=== PATIENT | male | born 1995 | race African-American/Black ===

== ENCOUNTER 2018-11-21 09:47 | Emergency (ER) | payer SELFPAY ==
[~2018-11-21] VITALS: Ht 177.8 cm; Wt 59.0 kg
[~2018-11-21 09:47] MED LIST: ACET-1603; PENI500T2
[2018-11-21] MEDS ORDERED: ACETAMINOPHEN 325 MG TAB PO ONE (10:00)
[2018-11-21 10:08] VITALS: BP 142/98
[2018-11-21 10:16] LABS: Hematocrit 46.2 % (41.0-53.0); Hemoglobin 15.7 g/dL (13.5-17.5); Mean Corpuscular Hgb Conc. 33.9 g/dL (32.0-36.0); Mean Corpuscular Volume 88.4 fL (80.0-100.0); Platelet Count (auto) 102 10^3/uL (140-450); Red Blood Cells 5.22 10^6/uL (4.5-5.90); Red Cell Distribution Width 12.6 % (11.8-14.3); White Blood Cell 6.2 10^3/uL (4.4-10.8)
[2018-11-21 10:27] LABS: Basophils % (manual) 0 (0.0-2.0); Blast Cells 0; Eosinophils % (manual) 0 (0-7); Metamyelocytes % 0; Myelocytes % 0; Promyelocytes % 0; Reactive Lymphocytes 0
[2018-11-21 10:35] LABS: Albumin 4.1 g/dL (3.4-5.0); Calcium 9.1 mg/dL (8.5-10.1)
[2018-11-21 10:37] LABS: BUN/Creatinine Ratio 13.3; Bilirubin, Total 3.2 mg/dL (0.2-1.0); Total Protein 8.2 g/dL (6.4-8.2)
[2018-11-21 10:53] LABS: Band Neutrophils % (manual) 2; Lymphocytes % (manual) 20 (10.0-50.0); Monocytes % (manual) 6 (0-12)
[2018-11-21 11:12] LABS: Potassium 2.8 mmol/L (3.5-5.1)
[2018-11-21] MEDS ORDERED: POTASSIUM EFFERVESENT TAB 25 MEQ ONE (11:25)
[2018-11-21] MEDS ORDERED: POTASSIUM EFFERVESENT TAB 25 MEQ PO ONE (11:30)
== END 2018-11-21 12:07 | disposition left against medical advice (07) ==
LOC: ER 09:52
DX: E87.6 Hypokalemia (principal); R94.5 Abnormal results of liver function studies
CPT/HCPCS: 36415; 74176; 80053; 85007; 85027; 94761

== ENCOUNTER 2021-02-22 00:03 | Emergency (ER) | payer MEDICAID ==
[~2021-02-22] VITALS: Ht 180.3 cm; Wt 61.2 kg
[2021-02-22 01:37] LABS: Basophils # (auto) 0.1 10 ^3/uL (0-0.2); Basophils % (auto) 0.9 % (0.0-2.0); Eosinophils # (auto) 0 10 ^3/uL (0-0.8); Eosinophils % (auto) 0.4 % (0.0-7.0); Hematocrit 42.4 % (41.0-53.0); Hemoglobin 14.2 g/dL (13.5-17.5); Lymphocytes # (auto) 1.7 10 ^3/uL (0.4-5.4); Lymphocytes % (auto) 25.3 % (10.0-50.0); Mean Corpuscular Hemoglobin 30.3 pg (28.0-32.0); Mean Corpuscular Hgb Conc. 33.6 g/dL (32.0-36.0); Monocytes # (auto) 0.5 10 ^3/uL (0-1.3); Monocytes % (auto) 7.7 % (0.0-12.0); Neutrophils # (auto) 4.3 10 ^3/uL (1.6-8.6); Neutrophils % (auto) 65.7 % (37.0-80.0); Nucleated Red Blood Cells % 0.2 %; Red Blood Cells 4.71 10^6/uL (4.5-5.90); Red Cell Distribution Width 12.1 % (11.8-14.3); White Blood Cell 6.5 10^3/uL (4.4-10.8)
[2021-02-22 01:46] LABS: Albumin 3.8 g/dL (3.4-5.0); Anion Gap 8 (5-15); BUN/Creatinine Ratio 13.6; Blood Urea Nitrogen 14 mg/dL (7-18); Calcium 8.9 mg/dL (8.5-10.1); Carbon Dioxide 25 mmol/L (21-32); Chloride 105 mmol/L (98-107); GFR African American 113 mL/min; GFR Non-African American 94 mL/min; Glucose 95 mg/dL (74-106); INR 1.16 (0.9-1.15); Magnesium 2.4 mg/dL (1.6-2.6); Partial Thromboplastin Time 27.1 sec (23.6-33.0); Potassium 3.8 mmol/L (3.5-5.1); Sodium 138 mmol/L (136-145)
[2021-02-22 01:51] LABS: Alanine Aminotransferase 30 U/L (16-61); Alkaline Phosphatase 61 U/L (45-117); Aspartate Aminotransferase 17 U/L (15-37); Bilirubin, Total 1.6 mg/dL (0.2-1.0); Total Protein 7.4 g/dL (6.4-8.2)
[2021-02-22] MEDS ORDERED: SODIUM CHLORIDE 0.9% 2,000 ML IV ONE (04:00)
[2021-02-22 05:00] VITALS: BP 100/59
== END 2021-02-22 05:22 | disposition home or self-care (01) ==
LOC: EDUNIT# 00:03 → EDBD 00:03 → ER 00:04
DX: F19.10 Other psychoactive substance abuse, uncomplicated (principal); R07.89 Other chest pain; Z79.899 Other long term (current) drug therapy
CPT/HCPCS: 36415; 71045; 80053; 80320; 83735; 83880; 84443; 84484; 85025; 85610; 85730; 93005; 96360; 99285; J7030

== ENCOUNTER 2021-10-16 12:04 | Emergency (ER) | payer MEDICAID, OTHER ==
[~2021-10-16] VITALS: Ht 177.8 cm; Wt 61.2 kg
[2021-10-16] MEDS ORDERED: TETANUS-DIPTH-ACEL PERTUSSIS 0.5ML SYR Tdap IM ONE (14:15)
[2021-10-16 14:37] VITALS: BP 139/94
[2021-10-16] MEDS ORDERED: LIDOCAINE 1% HCL (LOCAL ANESTH.) INJ 20ML MDV ID ONE (14:45)
[2021-10-16] MEDS ORDERED: CEPH-509 PO (16:19)
== END 2021-10-16 17:10 | disposition home or self-care (01) ==
LOC: EDUNIT# 12:04 → ER 12:04 → EDBD 12:04 → ER 16:57
DX: S62.616A Displaced fracture of proximal phalanx of right little finger, initial encounter for closed fracture (principal); S01.81XA Laceration without foreign body of other part of head, initial encounter; Z79.2 Long term (current) use of antibiotics; V43.52XA Car driver injured in collision with other type car in traffic accident, initial encounter; Y93.89 Activity, other specified; Y92.89 Other specified places as the place of occurrence of the external cause; Y99.8 Other external cause status
CPT/HCPCS: 12014; 70450; 70486; 71045; 72125; 73130; 90471; 90715; 99284; J2001

== ENCOUNTER 2022-05-25 09:02 | Emergency (ER) | payer MEDICAID ==
[~2022-05-25] VITALS: Ht 177.8 cm; Wt 79.5 kg
[~2022-05-25 09:02] MED LIST changes: +CEPH-509 PO
[2022-05-25 09:54] VITALS: BP 161/117
[2022-05-25] MEDS ORDERED: CEPH-510 PO (11:08)
== END 2022-05-25 11:19 | disposition home or self-care (01) ==
LOC: ER 09:02
DX: S00.451A Superficial foreign body of right ear, initial encounter (principal); Z79.2 Long term (current) use of antibiotics; Z79.899 Other long term (current) drug therapy; W45.8XXA Other foreign body or object entering through skin, initial encounter; Y93.89 Activity, other specified; Y92.89 Other specified places as the place of occurrence of the external cause; Y99.8 Other external cause status